=== PATIENT | male | born 1940 | race Caucasian/White ===

== ENCOUNTER → 2018-04-16 | Outpatient (CLI) | payer MEDICARE ==
[2015-09-08 15:40] VITALS: BMI 29.0
[~2018-04-16] MED LIST: ACET500T68 PO; ACET650T40 PO; CALC-18 PO; CARB-1 PO; DOCU-416 PO; DORZ10DR24 ASDIRECTED; HYDR-317 PO; IBUP-56 PO; LATA2.5D7 ASDIRECTED; LISI-351 PO; MELO-207 PO; OXYB10TA21 PO; OXYC-869 PO; PANT20TA26 PO; PANT40TA65 PO; PHEN200T32 PO; PROSTATE MEDICATION; RIV10 PO; TAMS0.4C25 PO; VITAMINS; [UNRECOGNIZED DRUG - OTHER] PO
[2018-04-16 16:41] LABS: PLATELET COUNT, AUTOMATED 193 K/uL (150-450)
--- NOTE | 2018-04-16 17:16 | RADIOLOGY IMAGING REPORT ---
FACILITY: [facility] PATIENT NAME: Lalit Celis : 1940 MR: [id number] V: [id number] EXAM DATE: ORDERING PHYSICIAN: LILIAN MERCADO TECHNOLOGIST: Location: [facility] - [place] Patient: Lalit Celis : 1940 Visit/Account:[id number] Date of Sevice: 04/16/2018 ACUTE ABDOMEN SERIES 3 VIEW Indication: abdominal pain Comparison: None. Findings: CHEST: The lungs are clear. Heart size and pulmonary vasculature are normal. ABDOMEN: Normal bowel gas pattern is seen. There is no abdominal free air. There are degenerative c hanges throughout the lumbar spine. IMPRESSION: 1. Clear lungs. 2. Normal bowel gas pattern. Report Dictated By: Lalit Long at 04/16/2018 5:09 PM Report E-Signed By: Lalit Long at 04/16/2018 5:10 PM WSN:[id number]
== END ==
LOC: LAB 15:40
PROVIDERS: ATTEND Internal Medicine
DX: R10.9 Unspecified abdominal pain (principal)
CPT/HCPCS: 74022; 81001; 82150; 82378; 82728; 83540; 83550; 83690; 84443; 85025; 86677; G0103; 82040; 82247; 82310; 82374; 82435; 82565; 82947; 84075; 84132; 84153; 84155; 84295; 84450; 84460; 84520

== ENCOUNTER → 2018-04-19 | Outpatient (CLI) | payer MEDICARE ==
[2015-09-08 15:40] VITALS: BMI 29.0
[~2018-04-19] MED LIST changes: +APIX5TAB PO
--- NOTE | 2018-04-19 11:09 | EKG ---
FACILITY: [facility] - [place] PATIENT NAME: SABAS VILLA : [id number] MR: [id number] V: [id number] EXAM DATE: ORDERING PHYSICIAN: LILIAN MERCADO TECHNOLOGIST: LV Test Reason : PRO-OP Blood Pressure : / mmHG Vent. Rate : 084 BPM Atrial Rate : 089 BPM P-R Int : 000 ms QRS Dur : 082 ms QT Int : 376 ms P-R-T Axes : 000 -29 -21 degrees QTc Int : 444 ms Atrial fibrillation Controlled ventricular response Left axis deviation Nonspecific ST findings anteriorly Abnormal ECG Confirmed by AMIRAH MACHUCA ([id number]) on 04/19/2018 4:43:16 PM Referred By: MARIA DEL CARMEN Confirmed By:AMIRAH MACHUCA
== END ==
LOC: RESP 09:36
PROVIDERS: ATTEND Internal Medicine
DX: I48.91 Unspecified atrial fibrillation (principal); I35.0 Nonrheumatic aortic (valve) stenosis; I51.7 Cardiomegaly; R94.31 Abnormal electrocardiogram [ECG] [EKG]
CPT/HCPCS: 93306

== ENCOUNTER 2018-04-23 00:06 | Day surgery (SDC) | payer MEDICARE ==
[2015-09-08 15:40] VITALS: Ht 177.8 cm; Wt 86.2 kg
[2018-04-23] VITALS (8 sets, daily range): BP systolic 82–147; BP diastolic 50–93
[~2018-04-23] VITALS: Ht 177.8 cm; Wt 86.2 kg
[2018-04-23] MEDS ORDERED: NORMOSOL R SOLN(*) 1000 ML BAG 1,000 ML IV PRN (09:50)
[2018-04-23] MEDS ORDERED: LIDOCAINE/SOD BICARB 8.4% SYR ID ONE (09:50)
[2018-04-23] MEDS ORDERED: PROPOFOL EMUL(*) 10MG/ML 20 ML 40 ML ONE (10:08)
--- NOTE | 2018-04-23 11:08 | Short(Outpt) Discharge Summary ---
Discharge Summary Reason for Hosp/Final Diag: (1) History of colon cancer Hospital Course & Plan: pt presented for egd/colonoscopy. he tolerated the procedure well and there were no complications. he will be discharged home when criteria met. (2) Black stools Departure Discharge to: Home Discharge Instructions Home Meds Active Scripts Apixaban (ELIQUIS) 5 Mg Tablet, 5 MG PO BID, #60 TAB 6 Refills Prov:LILIAN MERCADO MD 04/22/18 Pantoprazole Sodium (PANTOPRAZOLE SODIUM) 40 Mg Tablet., 40 MG PO QDAY, #30 TAB.SR 3 Refills Prov:LILIAN MERCADO MD 04/19/18 Lisinopril/Hydrochlorothiazide (LISINOPRIL-HCTZ 10-12.5 MG TAB) 1 Each Tablet, 1 EACH PO DAILY, #90 TAB 3 Refills Prov:LILIAN MERCADO MD 04/17/18 Reported Medications Carbidopa/Levodopa (SINEMET 10-100 MG TABLET) Unknown Strength Tablet, PO 04/16/18 Dorzolamide Hcl (DORZOLAMIDE HCL) 10 Ml Drops, 1 DROP ASDIRECTED DAILY 06/15/15 Latanoprost (LATANOPROST) 2.5 Ml Drops, 1 DROP ASDIRECTED BID 06/15/15 Discontinued Reported Medications [Fe Gucanate] No Conflict Check, 375 MG PO BIDBS, #60 TAKE WITH FOOD 09/10/15 Rivaroxaban (XARELTO 10 MG TAB (OR EQUIV)) 10 Mg Tablet, 10 MG PO QDAY, #14 TAB 09/10/15 Oxycodone Hcl/Acetaminophen (PERCOCET 7.5-325 MG TABLET) 1 Each Tablet, 1-2 TAB PO Q4-6H PRN for PAIN, #80 TAB 09/10/15 Docusate Sodium (COLACE) 100 Mg Capsule, 100 MG PO BID, #30 CAPSULE 06/24/15 Discontinued Scripts Pantoprazole Sodium (PANTOPRAZOLE SODIUM) 40 Mg Tablet., 40 MG PO QDAY, #30 TAB.SR 6 Refills Prov:LILIAN MERCADO MD 04/16/18 Diet: Regular Activity: As Tolerated Special Instructions: we will call you in about 10 days with biopsy results. MONTEZ BRADSHAW Apr 23, 2018 11:08
--- NOTE | 2018-04-23 11:13 | Post Operative Progress Note ---
Post Operative Progress Note Date: Apr 23, 2018 Time: 11:08 Surgeon: dr. murtaza bates #[id number] Doctor'S Assistant: none Anesthesia: mac cr. crecca Pre-Op Diagnosis: melena h/o colon ca Post-Op Diagnosis: same Findings: no masses Procedure(s): colonoscopy Specimen Removed:(May be N/A): n/a Complications: none Estimated Blood Loss: none Date OP Note Dictated: Apr 23, 2018 Time OP Note Dictated: 11:09 MONTEZ BATES Apr 23, 2018 11:13
--- NOTE | 2018-04-23 12:05 | OPERATIVE REPORT 1 ---
EVENT DATE: April 23, 2018 SURGEON: Daniel Vargas MD ANESTHESIOLOGIST: Colten Rodney MD ANESTHESIA: MAC. EPOXY COATINGS INSTALLER: None. PREOPERATIVE DIAGNOSES 1. Melena. 2. History of colon cancer. POSTOPERATIVE DIAGNOSES 1. Melena. 2. History of colon cancer. PROCEDURE PERFORMED Esophagogastroduodenoscopy documented on gastrointestinal software. Colonoscopy will be documented here. FLUIDS IV crystalloid. ESTIMATED BLOOD LOSS None. SPECIMENS None. COMPLICATIONS None. INDICATIONS This is a 77-year old male with a history of colon cancer and he is due for a colonoscopy. He has also had melena. EGD was performed first and documented on the GI software. This was not functioning for the colonoscopy documentation. Therefore, that is being dictated. Risks and benefits of the procedure were obtained and consent was signed. DESCRIPTION OF PROCEDURE Patient was taken to the GI suite and placed in the left lateral position. MAC anesthesia was administered per the anesthesia team. After performing the EGD, the colonoscopy was performed. Digital rectal exam and perianal exam were unremarkable. The colonoscopy was then advanced through the anus into the anastomosis of the small bowel and transverse colon without difficulty. The blind end of the small bowel had a small lesion. This was consistent with a staple or stitch. It was not actively bleeding. The other end of the small bowel was patent and was unremarkable. There was no lesion. No mass. No bleeding. The colonoscope was slowly withdrawn. The prep was good. Sigmoid colon had multiple small diverticula. After suctioning the carbon dioxide from the rectum, the colonoscope was withdrawn. The patient tolerated the procedure well. There were no complications. MTDD
--- NOTE | 2018-04-23 13:41 | NUR ---
1115 SBAR REPORT FROM Abril RYAN RN, VSS, PT RESTING 1130 PT STILL RESTING, STILL IN L LAT POSITION 1137 PT ROLLED TO SUPINE POSITION, DOWN TO 2L MASK 1200 UP TO SF POSITION, DOWN TO 1L, OT TOLERATING WATER AND COFFEE 1215 VSS, SATTING WELL ON RA WOULD LIKE TO GET DRESSED 1219 ORTHOSTATICS STABLE , ALLOWED TO DRESS, DISCONNECTED IV FROM TUBING, ALL 350ML IN 1230 D/C INSTRUCTIONS COVERED, IV REMOVED, PRESSURE DRESSING APPLIED, WALKED WITH TP AD TO ER EXIT. PT STOPPED TO USE RESTROOM ALONG THE WAY, VOIDED WITHOUT DIFFICULTY. 1243 PLACED IN VEHICLE 1243, SELF TRANSFERRED WITHOUT INCIDENT
== END 2018-04-23 12:43 | disposition home or self-care (01) ==
LOC: OR 00:06
PROVIDERS: ATTEND Surgery
DX: K21.9 Gastro-esophageal reflux disease without esophagitis (principal); K29.70 Gastritis, unspecified, without bleeding; K29.80 Duodenitis without bleeding; Z85.038 Personal history of other malignant neoplasm of large intestine
CPT/HCPCS: 00813; 43239; 43249; 45378; 87077; 88305; 88313; 88344; C1726; J2704

== ENCOUNTER → 2018-07-18 | Outpatient (CLI) | payer MEDICARE ==
[2015-09-08 15:40] VITALS: BMI 29.0
--- NOTE | 2018-07-22 19:10 | RT HOLTER TEST ---
FACILITY: [facility] - [place] PATIENT NAME: SABAS VILLA : [id number] MR: [id number] V: [id number] EXAM DATE: ORDERING PHYSICIAN: MAY العلي TECHNOLOGIST: [place] Hook-up date: 2018-07-18 13:09:00 Duration: 47:59:00 Test Indications: A-FIB Medications: DIARY NOT RETURNED 707111 QRS complexes 979 Ventricular ectopics which represent <1 % of total QRS comp. 1 Supraventricular ectopics which represent <1 % of total QRS comp. * Paced QRS complexes which represent % of total QRS comp. VENTRICULAR ECTOPY 956 Isolated 15 Bigeminal Cycles 8 Couplets 2 Runs 7 Beats in Runs 4 Beats LONGEST at 88 BPM at 17:31:49 2018-07-19 3 Beats FASTEST at 135 BPM at 23:57:32 2018-07-19 SUPRAVENTRICULAR ECTOPY 1 Isolated 0 Couplets 0 Runs 0 Beats in Runs * Beats LONGEST at * BPM at :: -- * Beats FASTEST at * BPM at :: -- HEART RATES 53 MIN at 21:22:25 2018-07-19 81 AVG 129 MAX at 12:25:39 2018-07-20 LONGEST RR 1.688 secs at 03:25:42 2018-07-19 S-T LEVELS Channel 1 -12.800 mm MIN at 13:09:00 2018-07-18 -12.800 mm MAX at 13:09:00 2018-07-18 Channel 2 -12.800 mm MIN at 13:09:00 2018-07-18 -12.800 mm MAX at 13:09:00 2018-07-18 Sinus rhythm Premature ventricular complexes Confirmed by STANLEY STEWART ([id number]) on 07/22/2018 7:10:09 PM Referred By: Overread By: STANLEY STEWART
== END ==
LOC: RESP 01:12
PROVIDERS: ATTEND Internal Medicine
DX: I48.1 Persistent atrial fibrillation (principal)
CPT/HCPCS: 93225; 93226

== ENCOUNTER → 2018-07-22 | Outpatient (CLI) | payer MEDICARE ==
[2015-09-08 15:40] VITALS: BMI 29.0
== END ==
LOC: LAB 11:40
PROVIDERS: ATTEND Urology
DX: N40.1 Benign prostatic hyperplasia with lower urinary tract symptoms (principal); R97.20 Elevated prostate specific antigen [PSA]
CPT/HCPCS: 36415; 84153